=== PATIENT | female | born 1960 | race Caucasian/White ===

== ENCOUNTER → 2019-12-04 12:46 | Outpatient (BNVA) | payer OTHER, SELFPAY | PROVIDERS: PCP Physician Assistant; Referring Provider Physician Assistant; Visit Provider Dietitian, Registered | DX: Z76.89 Persons encountering health services in other specified circumstances (principal) ==

== ENCOUNTER → 2020-03-24 08:25 | Outpatient (BNVA) | payer OTHER, SELFPAY | PROVIDERS: Visit Provider Physician Assistant ==

== ENCOUNTER 2020-04-09 09:21 | Outpatient (REF) | payer OTHER, SELFPAY ==
[2020-04-09 09:55] LABS: MANUAL DIFF FLAG NO
[2020-04-09 10:06] LABS: Basophils Absolute Auto 0.1 X10*3/uL (0.0-0.2); Basophils Percent Auto 1.6 % (0-2); Eosinophils Absolute Auto 0.3 X10*3/uL (0.0-0.4); Eosinophils Percent Auto 7.1 % (0-4); Hematocrit 39.9 % (37-47); Hemoglobin 12.9 g/dl (12.0-16.0); Imm Gran Abs Auto 0.02 X10*3/uL (0.00-0.03); Imm Gran Pct Auto 0.5 % (0.0-0.4); Lymphocytes Absolute Auto 1.2 X10*3/uL (1.2-4.9); Lymphocytes Percent Auto 30.6 % (20-40); Mean Corpuscular HGB Conc 32.3 g/dl (31.0-35.0); Mean Corpuscular Hemoglobin 29.8 pg (27.0-33.0); Mean Corpuscular Volume 92.1 fL (80-98); Mean Platelet Volume 8.5 fL (9.4-12.3); Monocytes Absolute Auto 0.4 X10*3/uL (0.1-1.2); Monocytes Percent Auto 11.3 % (2-11); Neutrophils Absolute Auto 1.9 X10*3/uL (2.0-8.3); Neutrophils Percent Auto 48.9 % (45-73); Platelet Count 323 X10*3/uL (160-400); Red Blood Count 4.33 X10*6/uL (4.20-5.50); Red Cell Distribution Width 12.6 % (11.0-16.0); White Blood Count 3.8 X10*3/uL (4.8-10.8)
[2020-04-09 10:18] LABS: Estimated Average Glucose 94 mg/dL; Hemoglobin A1c % 4.9 %
[2020-04-09 10:50] LABS: Alanine Aminotransferase 25 U/L (0-31); Albumin Level 4.2 g/dL (3.5-5.0); Alkaline Phosphatase 83 U/L (39-117); Anion Gap 12 (12-20); Aspartate Amino Transferase 22 U/L (5-31); Bilirubin Total 0.7 mg/dL (0.0-1.0); Blood Urea Nitrogen 24 mg/dL (9-16); C Reactive Protein 0.07 mg/dL (< or = 0.50); Calcium 9.5 mg/dL (8.4-10.2); Carbon Dioxide 29 mmol/L (22-29); Chloride 107 mmol/L (96-108); Cholesterol 198 mg/dL; Estimated Glomerular Filt Rate > 60; Glucose Random 95 mg/dL (60-115); HDL Cholesterol 59 mg/dL; LDL Cholesterol Calculated 125 mg/dl; Potassium 4.4 mmol/L (3.3-5.1); Sodium 144 mmol/L (135-145); Total Protein 6.5 g/dL (6.5-8.0); Triglycerides 72 mg/dL
[2020-04-09 10:52] LABS: Ferritin 143 ng/mL (10-250); TSH reflex Free T4 0.07 uIU/mL (0.32-4.0); Vitamin D 25-OH Total 26.8 ng/mL (>30)
[2020-04-09 11:51] LABS: Free T4 (Free Thyroxine) 1.18 ng/dL (0.71-1.85)
[2020-04-09 13:02] LABS: Folate 15.5 ng/mL (> or = 4.0); Vitamin B12 1465 pg/mL (200-900)
[2020-04-12 13:06] LABS: Insulin Level Total 9.4 uIU/mL
[2020-04-12 18:41] LABS: Calcium (PTHI) 9.7 mg/dL (8.6-10.4); PTHI 39 pg/mL (14-64)
[2020-04-13 05:22] LABS: Zinc 94 mcg/dL (60-130)
[2020-04-14 10:36] LABS: Vitamin A 41 mcg/dL (38-98)
[2020-04-15 14:27] LABS: Vitamin B1 13 nmol/L (8-30)
== END 2020-04-09 09:22 | disposition home or self-care (01) ==
LOC: HO.LAB 09:21
PROVIDERS: Visit Provider Physician Assistant
DX: E66.9 Obesity, unspecified (principal); Z90.3 Acquired absence of stomach [part of]
CPT/HCPCS: 36415; 80053; 80061; 82306; 82607; 82728; 82746; 83036; 83525; 83970; 84425; 84439; 84443; 84590; 84630; 85025; 86140

== ENCOUNTER → 2020-04-16 08:58 | Outpatient (BNVA) | payer OTHER, SELFPAY | PROVIDERS: Visit Provider Physician Assistant ==

== ENCOUNTER → 2020-07-21 08:13 | Outpatient (BNVA) | payer OTHER, SELFPAY | PROVIDERS: Visit Provider Physician Assistant ==

== ENCOUNTER → 2020-09-01 08:13 | Outpatient (BNVA) | payer OTHER, SELFPAY | PROVIDERS: Visit Provider Dietitian, Registered | DX: E66.9 Obesity, unspecified (principal); Z68.37 Body mass index [BMI] 37.0-37.9, adult | CPT/HCPCS: 97803 ==

== ENCOUNTER → 2020-12-01 13:09 | Outpatient (BNVA) | payer OTHER, SELFPAY | PROVIDERS: Visit Provider Physician Assistant | DX: E66.9 Obesity, unspecified (principal); Z90.3 Acquired absence of stomach [part of] | CPT/HCPCS: 99212 ==

== ENCOUNTER → 2020-12-17 08:07 | Outpatient (BNVA) | payer OTHER, SELFPAY | PROVIDERS: Visit Provider Dietitian, Registered | DX: Z98.84 Bariatric surgery status (principal) | CPT/HCPCS: 97803 ==

== ENCOUNTER → 2021-01-04 08:01 | Outpatient (BNVA) | payer OTHER, SELFPAY | PROVIDERS: Referring Provider Physician Assistant; Visit Provider Dietitian, Registered | DX: E66.9 Obesity, unspecified (principal); Z90.3 Acquired absence of stomach [part of] | CPT/HCPCS: 97803 ==

== ENCOUNTER 2022-10-17 07:47 | Outpatient (AMB) | payer MEDICAID, SELFPAY ==
--- OUTSIDE RECORDS SUMMARY | 2022-10-17 07:48 | XMS_ITS | Continuity of Care Document ---
Author Name Unknown Organization [facility] y Address [address] [place] [address]- Care Team Providers Care Manager Motor Name Role Phone Jared Marquez Primary Care Physician [place] [facility] [id number] Date(s): 12/23/20 - 04/22/21 [facility] [address], [place] [address] Attending Physician: Sanjuana Arias MD Admitting Physician: Sanjuana Arais MD Allergies, Adverse Reactions, Alerts Substance Reaction Severity Status HIVES FULL BODY Active oxyCODONE Nausea Active Medications b complex b complex, By Mouth, Refills 0, Maintenance, 03/10/19 14:15:00 EST, Compound Start Date: 03/10/19 Status: Ordered biotin biotin, By Mouth, Refills 0, Maintenance, 03/10/19 14:15:00 EST, Compound Start Date: 03/10/19 Status: Ordered BuPROpion By Mouth, 0 Refills, Maintenance, 09/26/19 14:22:00 EDT Start Date: 09/26/19 Status: Ordered calcium calcium, Refills 0, Maintenance, 09/26/19 14:23:00 EDT, Supply Start Date: 09/26/19 Status: Ordered CPAP Machine See Instructions, # 1 each, Maintenance, AutoCPAP 6-10, 01/28/21 12:58:00 EST, Compound Start Date: 01/28/21 Status: Ordered estradiol 0.1 mg/g vaginal cream See Instructions, INSERT 1 GM VAGINALLY EVERY SUNDAY AND SUNDAY, # 42.5 Gm, 3 Refills, [facility], 157.48, cm, 01/28/21 9:14:00 EST, Height, 89, kg, 08/17/20 14:00:00 EDT, Dry Weight Start Date: 01/31/21 Status: Ordered Levothyroxine = 150 mcg, By Mouth, Daily, 0 Refills, Maintenance, 10/06/11 14:12:44 EDT Start Date: 10/06/11 Status: Ordered magnesium oxide 400 mg oral tablet See Instructions, JOSE VIZCARRAA TODOS LOS QUICK CON ALIMENTO, # 30 tablet, 5 Refills, [facility] STORE 27913, 157.48, cm, 01/28/21 9:14:00 EST, Height, 89, kg, 08/17/20 14:00:00 EDT, Dry Weight Start Date: 03/07/21 Status: Ordered mirabegron 25 mg oral tablet, extended release 1 tablet = 25 mg, By Mouth, Daily, do not crush or chew, # 30 tablet, 5 Refills, Maintenance, 02/08/21 12:34:00 EST, ER Tablet, [facility]/pharmacy #[id number], Partial fill upon patient request if the prescription is for a schedule II opioid drug., 157.48, cm, 12... Start Date: 02/08/21 Status: Ordered Multivitamin By Mouth, Daily, 0 Refills, Maintenance, 03/10/19 14:16:00 EST Start Date: 03/10/19 Status: Ordered Multivitamin Daily, 0 Refills, Maintenance, 09/26/19 14:23:00 EDT Start Date: 09/26/19 Status: Ordered Myrbetriq 25 mg oral tablet, extended release 1 tablet = 25 mg, By Mouth, Daily, do not crush or chew, # 30 tablet, 5 Refills, Maintenance, 06/30/19 14:04:00 EDT, ER Tablet, [facility]/pharmacy #[id number], 157.48, cm, 04/03/19 12:54:00 EST, Height, 79.7, kg, 03/13/19 9:32:00 EST, Dry Weight Start Date: 06/30/19 Status: Ordered Tylenol Caplet Extra Strength 2 TABS, By Mouth, Every 6 hours, PRN Pain , Moderate, 0 Refills, Maintenance, 11/18/18 15:12:05 EDT Start Date: 11/18/18 Status: Ordered Venlafaxine = 150 mg, By Mouth, Daily before lunch, 0 Refills, Maintenance, 12/14/12 8:55:07 EST Start Date: 01/26/12 Status: Ordered verapamil 120 mg oral tablet 1 tablet = 120 mg, By Mouth, Daily, 0 Refills, Maintenance, 10/06/11 14:11:16 EDT Start Date: 10/06/11 Status: Ordered zyrtec zyrtec, By Mouth, Refills 0, Maintenance, 03/10/19 14:14:00 EST, Compound Start Date: 03/10/19 Status: Ordered Problem List Condition Effective Dates Status Health Status Inform ant Arthritis(Confirmed) Active Asthma(Confirmed) Active Chronic low back pain(Confirmed) Active H/O peripheral neuropathy, p t states had EMG, nondiabetic(Confirmed) Active Hypertension(Confirmed) Active Hypothyroidism(Confirmed) Active Insomnia(Confirmed) Active Morbid Obesity(Confirmed) Active Obese class II(Confirmed) Active Obstructive sleep apnea on CPAP(Confirmed) Active Vital Signs Most recent to oldest [Reference Range]: 1 Height 157.48 cm (04/05/21 4:35 PM) Weight 88.6 kg (04/05/21 4:35 PM) Social History Social History Type Response Smoking Status Never smoker entered on: 11/13/14 Sex
--- OUTSIDE RECORDS SUMMARY | 2022-10-17 07:48 | XMS_ITS | Continuity of Care Document ---
Author Name Unknown Organization [facility] Address [address] [facility], 3r d Floor, [address] [place] [address]- Care Team Providers Care Certifed Refrigeration Operator Name Role Phone Jared Marquez Primary Care Physician [place] [facility] [place]20 [facility] [address], [address], [address] [place] [id number] Attending Physician: AdmPj ordoñez Admitting Physician: Admtr, Pj Referring Physician: Admtr, Ar8 Allergies, Adverse Reactions, Alerts Substance Reaction Severity [...] See Instructions, # 1 each, Maintenance, AutoCPAP 6-14, 12/23/19 10:31:00 EST, Compound Start Date: 12/23/19 Status: Ordered Estrace Vaginal Cream 0.1 mg/g = 1 Gm, Vaginally, Every Sunday and , # 42.5 Gm, 3 Refills, Maintenance, 02/03/20 12:54:00 EST, [id number], 157.48, cm, 09/26/19 14:21:00 EDT, Height, 79.7, kg, 03/13/19 9:32:00 EST, Dry Weight Start Date: 02/03/20 Status: Ordered Estrace Vaginal Cream 0.1 mg/g See Instructions, Vaginally Daily at bedtime, # 42 Gm, 3 Refills, Maintenance, 12/18/18 10:29:28 EST Start Date: 12/18/18 Status: Ordered Levothyroxine = 150 mcg, By Mouth, Daily, 0 Refills, Maintenance, 10/06/11 14:12:44 EDT Start Date: 10/06/11 Status: Ordered magnesium oxide 400 mg oral tablet 1 tablet = 400 mg, By Mouth, Daily, for 30 days, take with food, # 30 tablet, 5 Refills, Acute 03/24/20 15:14:00 EST, 09/26/19 15:14:00 EDT, [facility]/pharmacy #[id number], 157.48, cm, 09/26/19 14:21:00 EDT, Height, 79.7, kg, 03/13/19 9:32:00 EST, Dry Weight Start Date: 09/26/19 Stop Date: 03/24/20 Status: Ordered mirabegron 25 mg oral tablet, extended release 1 tablet = 25 mg, By Mouth, Daily, do not crush or chew, # 30 tablet, 5 Refills, Maintenance, 02/03/20 12:54:00 EST, ER Tablet, [facility]/pharmacy #[id number], Partial fill upon patient request if the prescription is for a schedule II opioid drug., 157.48, cm, 08... Start Date: 02/03/20 Status: Ordered Multivitamin By Mouth, Daily, 0 Refills, Maintenance, 03/10/19 14:16:00 EST Start Date: 03/10/19 Status: Ordered Multivitamin Daily, 0 Refills, Maintenance, 09/26/19 14:23:00 EDT Start Date: 09/26/19 Status: Ordered Myrbetriq 25 mg oral tablet, extended release 1 tablet = 25 mg, By Mouth, Daily, do not crush or chew, # 30 tablet, 5 Refills, Maintenance, 06/30/19 14:04:00 EDT, ER Tablet, [facility]/pharmacy #[id number], 157.48, cm, 04/03/19 12:54:00 EST, Height, 79.7, kg, 03/13/19 9:32:00 EST, Dry Weight Start Date: 06/30/19 Status: Ordered Tylenol Caplet Extra Strength 2 TABS, By Mouth, Every 6 hours, PRN Pain , Moderate, 0 Refills, Maintenance, 11/18/18 15:12:05 EDT Start Date: 11/18/18 Status: Ordered Venlafaxine = 150 mg, By Mouth, Daily before lunch, 0 Refills, Maintenance, 01/26/12 8:55:07 EST Start Date: 01/26/12 Status: Ordered [...] EMG, nondiabetic(Confirmed) Active Hypertension(Confirmed) Active Hypothyroidism(Confirmed) Active Morbid Obesity(Confirmed) Active Obstructive sleep apnea on CPAP(Confirmed) Active Social History Social History Type Response Smoking Status Never smoker entered on: 11/13/14 Sex
--- OUTSIDE RECORDS SUMMARY | 2022-10-17 07:48 | XMS_ITS | Continuity of Care Document ---
Author Name Unknown Organization [facility] Address [address] [place] [address]- Care Team Providers Care Director Mobile Media [employer] Name Role Phone Jared Marquez Primary Care Physician [phone] Encounter [facility] [place] Date(s): 05/11/22 - 06/10/22 [facility] [address] [address] Attending Physician: Admtr, Ar8 Admitting Physician: Admtr, Ar8 Referring Physician: Admtr, Ar8 Allergies, Adverse Reactions, [...] Instructions, # 1 each, Maintenance, AutoCPAP 6-10, 05/11/22 14:07:00 EDT, Compound Start Date: 05/11/22 Status: Ordered estradiol 0.1 mg/g vaginal cream See Instructions, INSERT 1 GM VAGINALLY EVERY SUNDAY AND SUNDAY, # 42.5 Gm, 3 Refills, [facility], 157.48, cm, 01/28/21 9:14:00 EST, Height, 89, kg, 08/17/20 14:00:00 EDT, Dry Weight Start Date: 01/31/21 Status: Ordered Levothyroxine = 150 mcg, By Mouth, Daily, 0 Refills, Maintenance, 10/06/11 14:12:44 EDT Start Date: 10/06/11 Status: Ordered magnesium oxide 400 mg oral tablet See Instructions, CHEOE EVERTON TABLETA TODOS LOS QUICK CON ALIMENTO, # 30 tablet, 5 Refills, [facility] STORE 32272, 157.48, cm, 01/28/21 9:14:00 EST, Height, 89, kg, 08/17/20 14:00:00 EDT, Dry Weight Start Date: 03/07/21 Status: Ordered mirabegron 25 mg oral tablet, extended release 1 tablet = 25 mg, By Mouth, Daily, do not crush or chew, # 30 tablet, 5 Refills, Maintenance, 01/31/22 12:11:00 EST, ER Tablet, [facility]/pharmacy #[id number], Partial fill upon patient request if the prescription is for a schedule II opioid drug., 157.48, cm, 02... Start Date: 01/31/22 Status: Ordered Multivitamin By Mouth, Daily, 0 Refills, Maintenance, 03/10/19 14:16:00 EST Start Date: 03/10/19 Status: Ordered Multivitamin Daily, 0 Refills, Maintenance, 09/26/19 14:23:00 EDT Start Date: 09/26/19 Status: Ordered Myrbetriq 25 mg oral tablet, extended release 1 tablet = 25 mg, By Mouth, Daily, do not crush or chew, # 30 tablet, 5 Refills, Maintenance, 06/30/19 14:04:00 EDT, ER Tablet, [facility]/pharmacy #[id number], 157.48, cm, 04/03/19 12:54:00 EST, Height, [...] Date: 03/10/19 Status: Ordered Problem List Condition Confirmation Course Effective Dates Status H ealth Status Informant Arthritis Confirmed Active Asthma Confirmed Active Chronic low back pain Confirmed Active H/O peripheral neuropathy, pt states had EMG, nondiabetic Confirmed Active Hypertension Confirmed Active Hypothyroidism Confirmed Active Insomnia Confirmed Active Morbid Obesity Confirmed Active Obese class II Confirmed Active Obstructive sleep apnea on CPAP Confirmed Active Social History Social History Type Response Smoking Status Never smoker entered on: 11/13/14 Sex Patient Care team information Care Team Personnel Name: Jared Marquez Position: S Outreach Member Role: PCP Address: Address: [address] [place] [address]- Care Team Related Persons Name: GUALBERTO CAMACHO Address: home [address] [place] [address] Name: ERIC KAUFFMAN
--- OUTSIDE RECORDS SUMMARY | 2022-10-17 07:48 | XMS_ITS | Continuity of Care Document ---
Author Name Unknown Organization [facility] Address [address] [place] [address]- Care Team Providers Care Engraver Pantograph Name Role Phone Jared Marquez Primary Care Physician En[place] [facility] [place] Date(s): 07/21/21 - 08/20/21 [facility] [address] [place] [id number] Attending Physician: Admtr, Ar8 Admitting Physician: Admtr, [...] Instructions, # 1 each, Maintenance, AutoCPAP 6-10, 07/21/21 11:07:00 EDT, Compound Start Date: 07/21/21 Status: Ordered estradiol 0.1 mg/g vaginal cream See Instructions, INSERT 1 GM VAGINALLY EVERY SUNDAY AND SUNDAY, # 42.5 Gm, 3 Refills, [facility], 157.48, cm, 01/28/21 9:14:00 EST, Height, 89, kg, 08/17/20 14:00:00 EDT, Dry Weight Start Date: 01/31/21 Status: Ordered Levothyroxine = 150 mcg, By Mouth, Daily, 0 Refills, Maintenance, 10/06/11 14:12:44 EDT Start Date: 10/06/11 Status: Ordered magnesium oxide 400 mg oral tablet See Instructions, CHEOE EVERTON TABLETA TODOS LOS QUICK CON ALIMENTO, # 30 tablet, 5 Refills, [facility] ST[facility] 32936, 157.48, cm, 01/28/21 9:14:00 EST, Height, 89, kg, 08/17/20 14:00:00 EDT, Dry Weight Start Date: 03/07/21 Status: Ordered mirabegron 25 mg oral tablet, extended release 1 tablet = 25 mg, By Mouth, Daily, do not crush or chew, # 30 tablet, 5 Refills, Maintenance, 08/09/21 12:07:00 EDT, ER Tablet, [facility]/pharmacy #[id number], Partial fill upon patient request if the prescription is for a schedule II opioid drug., 157.48, cm, 02... Start Date: 08/09/21 Status: Ordered Multivitamin By Mouth, Daily, 0 Refills, Maintenance, 03/10/19 14:16:00 EST Start Date: 03/10/19 Status: Ordered Multivitamin Daily, 0 Refills, Maintenance, 09/26/19 14:23:00 EDT Start Date: 09/26/19 Status: Ordered Myrbetriq 25 mg oral tablet, extended release 1 tablet = 25 mg, By Mouth, Daily, do not crush or chew, # 30 tablet, 5 Refills, Maintenance, 06/30/19 14:04:00 EDT, ER Tablet, [facility]/pharmacy #[id number], 157.48, cm, 04/03/19 12:54:00 [...]
--- OUTSIDE RECORDS SUMMARY | 2022-10-17 07:48 | XMS_ITS | Continuity of Care Document ---
Author Name Unknown Organization [facility] [employer] Address [address] [facility], 4t [place] [address]- Care Team Providers Care Dock Or Pier Laborer Name Role Phone Jared Marquez Primary Care Physician [place] [facility] [place] - 09/13/19 [facility] [address] [facility], 4th [place] [address]- [facility] Allergies, Adverse Reactions, Alerts Substance Reaction Severity Status HIVES FULL BODY Active oxyCODONE Nausea Active Medications b complex b complex, By Mouth, Refills 0, Maintenance, 03/10/19 14:15:00 EST, Compound Start Date: 03/10/19 Status: Ordered biotin biotin, By Mouth, Refills 0, Maintenance, 03/10/19 14:15:00 EST, Compound Start Date: 03/10/19 Status: Ordered CPAP Machine See Instructions, # 1 each, Maintenance, AutoCPAP 6-14, 04/04/19 15:02:00 EST, Compound Start Date: 04/04/19 Status: Ordered Estrace Vaginal Cream 0.1 mg/g See Instructions, Vaginally Daily at bedtime, # 42 Gm, 3 Refills, Maintenance, 12/18/18 10:29:28 EST Start Date: 12/18/18 Status: Ordered Levothyroxine = 150 mcg, By Mouth, Daily, 0 Refills, Maintenance, 10/06/11 14:12:44 EDT Start Date: 10/06/11 Status: Ordered Multivitamin By Mouth, Daily, 0 Refills, Maintenance, 03/10/19 14:16:00 EST Start Date: 03/10/19 Status: Ordered Myrbetriq 25 mg oral tablet, extended release 1 tablet = 25 mg, By Mouth, Daily, do not crush or chew, # 30 tablet, 5 Refills, Maintenance, 06/30/19 14:04:00 EDT, ER Tablet, [id number], 157.48, cm, 04/03/19 12:54:00 EST, Height, [...]
--- OUTSIDE RECORDS SUMMARY | 2022-10-17 07:48 | XMS_ITS | Continuity of Care Document ---
Author Name Unknown Organization [facility] Address [address] [place] [address]- Care Team Providers Care Fighting Vehicle Systems Maintainer Name Role Phone Jared Marquez Primary Care Physician [place] [facility] [place] 08/01/19 - 08/31/19 [facility] [address] [place] [address] [facility] Attending Physician: Pj Garcia Admitting Physician: AdmPj ordoñez Referring Physician: Admtr, ArSharla Allergies, Adverse Reactions, Alerts Substance Reaction Severity [...] Refills, Maintenance, 06/30/19 14:04:00 EDT, ER Tablet, [facility]/pharmacy #[id number], 157.48, cm, 04/03/19 12:54:00 EST, [...]
--- OUTSIDE RECORDS SUMMARY | 2022-10-17 07:48 | XMS_ITS | Continuity of Care Document ---
Author Name Unknown Organization [facility] y Address [address] [place] [address]- Care Team Providers Care Scientific Linguist Name Role Phone Jared Marquez Primary Care Physician En[place] [facility] [place] Date(s): 10/27/20 - 01/14/21 [facility] [address], [place] [address] Attending Physician: Sanjuana Arias MD Admitting Physician: Sanjuana Arias MD Referring Physician: Jared Marquez Allergies, Adverse Reactions, Alerts Substance Reaction Severity [...] Instructions, # 1 each, Maintenance, AutoCPAP 6-10, 10/26/20 10:32:00 EDT, Compound Start Date: 10/26/20 Status: Ordered Estrace Vaginal Cream 0.1 mg/g = 1 Gm, Vaginally, Every Sunday and , # 42.5 Gm, 3 Refills, Maintenance, 08/17/20 14:21:00 EDT, [id number], 157.48, cm, 08/17/20 14:00:00 EDT, Height, 89, kg, 08/17/20 14:00:00 EDT, Dry Weight Start Date: 08/17/20 Status: Ordered Estrace Vaginal Cream 0.1 mg/g = 1 Gm, Vaginally, Every Sunday and , # 42.5 Gm, 3 Refills, Maintenance, 02/03/20 12:54:00 EST, [id number], 157.48, cm, 09/26/19 14:21:00 EDT, Height, 79.7, kg, 03/13/19 9:32:00 EST, Dry Weight Start Date: 02/03/20 Status: Ordered Levothyroxine = 150 mcg, By Mouth, Daily, 0 Refills, Maintenance, 10/06/11 14:12:44 EDT Start Date: 10/06/11 Status: Ordered mirabegron 25 mg oral tablet, extended release 1 tablet = 25 mg, By Mouth, Daily, do not crush or chew, # 30 tablet, 5 Refills, Maintenance, 08/17/20 14:21:00 EDT, ER Tablet, [id number], Partial fill upon patient request if the prescription is for a schedule II opioid drug., 157.48, cm, 07... Start Date: 08/17/20 Status: Ordered Multivitamin By Mouth, Daily, 0 [...] Hypothyroidism(Confirmed) Active Insomnia(Confirmed) Active Morbid Obesity(Confirmed) Active Obstructive sleep apnea on CPAP(Confirmed) Active Social History Social History Type Response Smoking Status Never smoker entered on: 11/13/14 Sex
--- OUTSIDE RECORDS SUMMARY | 2022-10-17 07:48 | XMS_ITS | Continuity of Care Document ---
Author Name Unknown Organization [facility] [employer] [facility] Address [address] [facility], 4t [place] [address]- Care Team Providers Care Cash Applications Clerk Name Role Phone Jared Marquez Primary Care Physician [facility] [id number] Date(s): 11/02/21 - 03/02/22 [facility] [facility] [address] [facility], [address] [place], [place] [address] Attending Physician: Maryan Richey MD Admitting Physician: Maryan Richey MD Referring Physician: Jared Marquez Allergies, Adverse [...] # 42.5 Gm, 3 Refills, [facility], 157.48, cm, 01/28/21 9:14:00 EST, Height, 89, kg, 08/17/20 14:00:00 EDT, Dry Weight Start Date: 01/31/21 Status: Ordered Levothyroxine = 150 mcg, By Mouth, Daily, 0 Refills, Maintenance, 10/06/11 14:12:44 EDT Start Date: 10/06/11 Status: Ordered magnesium oxide 400 mg oral tablet See Instructions, CHEOE EVERTON TABLETA TODOS LOS QUICK CON ALIMENTO, # 30 tablet, 5 Refills, [facility], 157.48, cm, 01/28/21 9:14:00 EST, Height, 89, kg, 08/17/20 14:00:00 EDT, Dry Weight Start Date: 03/07/21 Status: Ordered mirabegron 25 mg oral tablet, extended release 1 tablet = 25 mg, By Mouth, Daily, do not crush or chew, # 30 tablet, 5 Refills, Maintenance, 01/31/22 12:11:00 EST, ER Tablet, [facility]/pharmacy #[id number], Partial fill upon patient request if [...] Refills, Maintenance, 06/30/19 14:04:00 EDT, ER Tablet, [facility]/pharmacy #[id number], 157.48, cm, 04/03/19 12:54:00 EST, Height, [...] S Outreach Member Role: PCP Address: Address: [address] [place] [address]- Care Team Related Persons Name: GUALBERTO CAMACHO Address: home [address] [place] [address] Name: ERIC KAUFFMAN
--- OUTSIDE RECORDS SUMMARY | 2022-10-17 07:48 | XMS_ITS | Continuity of Care Document ---
Author Name Unknown Organization [facility] [employer] [facility] Address [address] [facility], 4t [place] [address]- Care Team Providers Care Cork Insulation Setter Name Role Phone Jared Marquez Primary Care Physician [place] [facility] [place]24[place] - 09/11/19 [facility] [address] [facility], 4th [place] [address]- [facility] Attending Physician: Maryan Richey MD Admitting Physician: [...]
--- OUTSIDE RECORDS SUMMARY | 2022-10-17 07:48 | XMS_ITS | Continuity of Care Document ---
Author Name Unknown Organization [facility] Address [address] [facility], 3r d Floor, [address] [place] [address]- Care Team Providers Care Architectural Superintendent Name Role Phone Jared Marquez Primary Care Physician En[facility] [place] Date(s): 01/28/19 - 02/04/19 [facility] [address] [place], [address] Floor, [address] [place] [address]- [facility] Attending Physician: Hallie Nur MD Allergies, Adverse Reactions, Alerts Substance Reaction Severity Status HIVES FULL BODY Active Medications Cetirizine By Mouth, Daily, 0 Refills, Maintenance, 01/16/19 10:43:30 EST Start Date: 01/16/19 Status: Ordered Estrace Vaginal Cream 0.1 mg/g See Instructions, Vaginally Daily at bedtime, # 42 Gm, 3 Refills, Maintenance, 12/18/18 10:29:28 EST Start Date: 12/18/18 Status: Ordered Levothyroxine = 150 mcg, By Mouth, Daily, 0 Refills, Maintenance, 10/06/11 14:12:44 EDT Start Date: 10/06/11 Status: Ordered Loratadine 10 mg, By Mouth, Daily, Refills 0, Maintenance, 12/12/17 13:16:33 EDT Start Date: 12/12/17 Status: Ordered Oxybutynin = 10 mg, By Mouth, Daily, 0 Refills, Maintenance, 03/05/18 9:12:03 EST Start Date: 03/05/18 Status: Ordered Tylenol Caplet Extra Strength 2 [...] 14:11:16 EDT Start Date: 10/06/11 Status: Ordered Problem List Condition Effective Dates [...]
--- OUTSIDE RECORDS SUMMARY | 2022-10-17 07:48 | XMS_ITS | Continuity of Care Document ---
Author Name Unknown Organization [facility] Address [address] [place] [address]- Care Team Providers Care Sponge Clipper Name Role Phone Jared Marquez Primary Care Physician Encounter [facility] [place] Date(s): 02/25/19 - 04/06/[address] [address] [facility] Attending Physician: Miranda Bass MD, V Admitting Physician: Miranda Bass MD, V Referring Physician: Miranda Bass MD, V Allergies, Adverse Reactions, Alerts Substance Reaction Severity [...] 14:16:00 EST Start Date: 03/10/19 Status: Ordered Tylenol Caplet Extra Strength 2 [...]
--- OUTSIDE RECORDS SUMMARY | 2022-10-17 07:48 | XMS_ITS | Continuity of Care Document ---
Author Name Unknown Organization [facility] Address [address] [facility], 3r d Floor, [address] [place] [address]- Care Team Providers Care Tensioning Machine Operator Name Role Phone Jared Marquez Primary Care Physician [place] [facility] [place]): [place] - 02/08/20 [facility] [address], 3[address] Floor, [address] [place] [address] Attending Physician: Isa Mota MD Admitting Physician: Isa Mota MD Allergies, Adverse Reactions, Alerts Substance Reaction [...] Acute 03/24/20 15:14:00 EST, 09/26/19 15:14:00 EDT, [facility]/pharmacy #[id number], 157.48, cm, 09/26/19 14:21:00 EDT, Height, 79.7, kg, 03/13/19 9:32:00 EST, Dry Weight Start Date: 09/26/19 Stop Date: 03/24/20 Status: Ordered mirabegron 25 mg oral tablet, extended release 1 tablet = 25 mg, By Mouth, Daily, do not crush or chew, # 30 tablet, 5 Refills, Maintenance, 02/03/20 12:54:00 EST, ER Tablet, [facility]/pharmacy #[id number], Partial fill upon patient request [...] Refills, Maintenance, 06/30/19 14:04:00 EDT, ER Tablet, [facility]/pharmacy #[id number], 157.48, cm, 04/03/19 12:54:00 EST, [...]
--- OUTSIDE RECORDS SUMMARY | 2022-10-17 07:48 | XMS_ITS | Continuity of Care Document ---
Author Name Unknown Organization [facility] Address [address] [place] [address]- Care Team Providers Care Laborer Laboratory Name Role Phone Jared Marquez Primary Care Physician Encounter [facility] [place] Date(s): 12/22/19 - 01/21/20 [facility] [address] [place] [id number] Attending Physician: Pj Garcia Admitting Physician: AdmtrPj Referring Physician: Admtr, Ar8 Allergies, Adverse Reactions, [...] Acute 03/24/20 15:14:00 EST, 09/26/19 15:14:00 EDT, [facility]/pharmacy #[id number], 157.48, cm, 09/26/19 14:21:00 EDT, Height, 79.7, kg, 03/13/19 9:32:00 EST, Dry Weight Start Date: 09/26/19 Stop Date: 03/24/20 Status: Ordered Multivitamin By Mouth, Daily, 0 Refills, Maintenance, 03/10/19 14:16:00 EST Start Date: 03/10/19 Status: Ordered Multivitamin Daily, 0 Refills, Maintenance, 09/26/19 14:23:00 EDT Start Date: 09/26/19 Status: Ordered Myrbetriq 25 mg oral tablet, extended release 1 tablet = 25 mg, By Mouth, Daily, do not crush or chew, # 30 tablet, 5 Refills, Maintenance, 06/30/19 14:04:00 EDT, ER Tablet, [facility]/pharmacy #[id number], 157.48, cm, 04/03/19 12:54:00 EST, Height, [...]
--- OUTSIDE RECORDS SUMMARY | 2022-10-17 07:48 | XMS_ITS | Continuity of Care Document ---
Author Name Unknown Organization [facility] Address [address] [place] [address]- Care Team Providers Care Disc Pad Knockout Worker Name Role Phone Jared Marquez Primary Care Physician [phone] [place] [facility] [place] 12/17/[place] - 01/21/20 [facility] [address] [place] [id number] Attending Physician: Abdi BURGOS, Masha Lopez Admitting Physician: Abdi BURGOS, Masha Lopez Referring Physician: Jared Marquez Allergies, Adverse Reactions, [...] Acute 03/24/20 15:14:00 EST, 09/26/19 15:14:00 EDT, [facility]/pharmacy #[id number], 157.48, cm, 09/26/19 14:21:00 EDT, Height, [...] Maintenance, 06/30/19 14:04:00 EDT, ER Tablet, [facility]/pharmacy #[id number], 157.48, cm, 04/03/19 12:54:00 EST, [...]
--- OUTSIDE RECORDS SUMMARY | 2022-10-17 07:48 | XMS_ITS | Continuity of Care Document ---
Author Name Unknown Organization [facility] Address [address] [facility], [address] Floor, [address] [place] [address]- Care Team Providers Care Slash Trimmer Name Role Phone Jared Marquez Primary Care Physician [phone] Encounter [facility] [place] Date(s): 06/26/19 - 07/03/19 [facility] [address], [address], [address] [place] [address]- [facility] Attending Physician: Not on Staff, Attending MD Allergies, Adverse Reactions, Alerts Substance Reaction [...]
--- OUTSIDE RECORDS SUMMARY | 2022-10-17 07:48 | XMS_ITS | Continuity of Care Document ---
Author Name Unknown Organization [facility] Address [address] [place] [address], [address] [place] [address]- Care Team Providers Care Form Grader Name Role Phone Jared Marquez Primary Care Physician [phone] Encounter [facility] [place] Date(s): 01/31/22 - 03/02/22 [facility] [address] [facility], [address] [place], [place] [address] Attending Physician: Pj Garcia Admitting Physician: AdmPj ordoñez Referring Physician: AdmtrPj Allergies, Adverse Reactions, Alerts Substance Reaction Severity [...] # 42.5 Gm, 3 Refills, [facility], 157.48, cm, 01/28/21 9:14:00 EST, Height, 89, kg, 08/17/20 14:00:00 EDT, Dry Weight Start Date: 01/31/21 Status: Ordered Levothyroxine = 150 mcg, By Mouth, Daily, 0 Refills, Maintenance, 10/06/11 14:12:44 EDT Start Date: 10/06/11 Status: Ordered magnesium oxide 400 mg oral tablet See Instructions, TOME [facility] TABLETA TODOS LOS QUICK CON ALIMENTO, # 30 tablet, 5 Refills, [facility], 157.48, cm, 01/28/21 9:14:00 EST, Height, 89, kg, 08/17/20 14:00:00 EDT, Dry Weight Start Date: 03/07/21 Status: Ordered mirabegron 25 mg oral tablet, extended release 1 tablet = 25 mg, By Mouth, Daily, do not crush or chew, # 30 tablet, 5 Refills, Maintenance, 01/31/22 12:11:00 EST, ER Tablet, [facility]/pharmacy #[id number], Partial fill upon patient request if [...] Refills, Maintenance, 06/30/19 14:04:00 EDT, ER Tablet, [facility]/pharmacy #[id number], 157.48, cm, 04/03/19 12:54:00 [...] Care Team Personnel Name: Jared Marquez Position: [facility] Outreach Member Role: PCP Address: Address: [address] [place] [address]- Care Team Related Persons Name: GUALBERTO CAMACHO Address: home [address] [place] [address] Name: ERIC KAUFFMAN
--- OUTSIDE RECORDS SUMMARY | 2022-10-17 07:48 | XMS_ITS | Continuity of Care Document ---
Author Name Unknown Organization [facility] Address [address] [place] [address]- Care Team Providers Care Bomb Squad Officer Name Role Phone Jared Marquez Primary Care Physician [place] [facility] [id number] Date(s): 03/24/21 - 07/22/21 [facility] [address] [place] [id number] Attending Physician: Sanjuana Arias MD Admitting Physician: Sanjuana Arias MD Allergies, Adverse Reactions, Alerts Substance Reaction [...] # 42.5 Gm, 3 Refills, [facility], 157.48, cm, 01/28/21 9:14:00 EST, Height, 89, kg, 08/17/20 14:00:00 EDT, Dry Weight Start Date: 01/31/21 Status: Ordered Levothyroxine = 150 mcg, By Mouth, Daily, 0 Refills, Maintenance, 10/06/11 14:12:44 EDT Start Date: 10/06/11 Status: Ordered magnesium oxide 400 mg oral tablet See Instructions, JOSE [place] TABLETA TODOS LOS QUICK CON ALIMENTO, # 30 tablet, 5 Refills, [facility]1953, 157.48, cm, 01/28/21 9:14:00 EST, Height, 89, [...]
--- OUTSIDE RECORDS SUMMARY | 2022-10-17 07:48 | XMS_ITS | Continuity of Care Document ---
Author Name Unknown Organization [facility] Address [address] [place] [address]- Care Team Providers Care Chemical Laboratory Technician Name Role Phone Jared Marquez Primary Care Physician [phone] Encounter [facility] [place] Date(s): 12/15/19 - 12/22/19 [facility] [address] [place] [id number] Attending Physician: Abdi BURGOS, Masha Lopez Admitting [...] 03/24/20 15:14:00 EST, 09/26/19 15:14:00 EDT, [facility]/pharmacy #[id number], 157.48, cm, 09/26/19 14:21:00 EDT, [...] 06/30/19 14:04:00 EDT, ER Tablet, [facility]/pharmacy #[id number], 157.48, cm, 04/03/19 12:54:00 EST, [...]
--- OUTSIDE RECORDS SUMMARY | 2022-10-17 07:48 | XMS_ITS | Continuity of Care Document ---
Author Name Unknown Organization [facility] Address [address] [facility], 4[address] [place] [address]- Care Team Providers Care Yard Hostler Name Role Phone Jared Marquez Primary Care Physician [phone] Encounter [facility] [place] Date(s): 06/30/19 - 09/11/19 [facility] [address] [facility], [address]th [place] [address]- [facility] Attending Physician: Maryan Richey MD Admitting Physician: [...] Refills, Maintenance, 06/30/19 14:04:00 EDT, ER Tablet, [facility]/pharmacy #[id number], 157.48, cm, 04/03/19 [...]
--- OUTSIDE RECORDS SUMMARY | 2022-10-17 07:48 | XMS_ITS | Continuity of Care Document ---
Author Name Unknown Organization [facility] Address [address] [facility], [address] Floor, [address] [place] [address]- Care Team Providers Care Tank Car Mechanic Name Role Phone Jared Marquez Primary Care Physician [phone] [place] [facility] [place]): [place] - 02/07/19 [facility] [address], [address], [address] [place] [address] [facility] Attending Physician: Pj Garcia Admitting Physician: AdmtrPj [...]
--- NOTE | 2022-10-17 08:01 | A.OFFVIS_ITS ---
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 Patient states I use a Cpap because I use to fall asleep everywhere and always felt very tired. I'm still waking up with headache and with memory issue but I feel that have improved greatly. Allergies atropine [From ] Allergy (Unknown, Unverified 12/01/20 13:19) RASH hyoscyamine [From ] Allergy (Unknown, Unverified 12/01/20 13:19) RASH phenobarbital [From ] Allergy (Unknown, Unverified 12/01/20 13:19) RASH scopolamine [From ] Allergy (Unknown, Unverified 12/01/20 13:19) RASH Allergy (Unknown, Uncoded 12/01/20 13:19) rash PFSH Medical History (Updated 03/24/20 @ 15:34 by Yany Arce PA-C) Aftercare following right shoulder joint replacement surgery Surgical History (Updated 10/17/22 @ 08:08 by LIEN Sanchez) H/O section History of sleeve gastrectomy Hx of bladder repair surgery Hx of cholecystectomy Hx of LASIK Hx of tonsillectomy Family History Mother No problems noted. Father No problems noted. Brother No problems noted. Brother No problems noted. Daughter No problems noted. Son No problems noted. Social History Alcohol intake: current Alcohol intake frequency: holidays/special occasions only Patient Tobacco Use Status: Never used Tobacco Coding Diagnoses
[2022-10-17 08:03] VITALS: BP 132/78; PULSE 73; O2SAT 97; BMI 35.9
--- NOTE | 2022-10-17 08:11 | MHC.OFFVIS ---
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 Patient sttaes Im using a CPAP now but I'm still getting headaches and some memory loss. Profile Saw Operator Required: Yes Profile Saw Operator Name: Noy Chavez Information Interpreted: non-clinical & clinical Allergies atropine [From ] Allergy (Unknown, Unverified 12/01/20 13:19) RASH hyoscyamine [From ] Allergy (Unknown, Unverified 12/01/20 13:19) RASH phenobarbital [From ] Allergy (Unknown, Unverified 12/01/20 13:19) RASH scopolamine [From ] Allergy (Unknown, Unverified 12/01/20 13:19) RASH Allergy (Unknown, Uncoded 12/01/20 13:19) rash Medication List - Last Reconciled 10/17/22 by Jaswant Vallejo, AMAN bupropion HCl 300 mg PO BEDTIME calcium citrate-vitamin D3 315 mg-5 mcg (200 unit) (Calcium Citrate + D) 1 tab PO BID cetirizine (All Day Allergy (cetirizine)) 10 mg PO DAILY PRN cholecalciferol (vitamin D3) 25 mcg PO DAILY docusate sodium (Colace) 100 mg PO BID duloxetine 20 mg PO BID levothyroxine 175 mcg PO DAILY lisinopril 5 mg PO DAILY mirabegron ER (Myrbetriq) 25 mg PO DAILY [id number]-FA-vit K 45 mg iron- 800 mcg-120 mcg (Bariatric Multivitamins) caps PO zolpidem 5 mg PO BEDTIME HPI HPI Comments History of Present Illness Details 62 y/o female patient with FAYE on CPAP presents for new in-person visit to manage sleep apnea. Pt reports she was diagnosed with FAYE in 2008 and started using CPAP. She has new CPAP in 2013, but no repeat sleep study done. Pt had gastric bypass 2020 and llost more than 100 lb, she was more than 300 lb in 2008. Pt uses CPAP almost every night except when she has a cold. However, her CPAP tube has water leaking and needs to take off the mask at night. Her home care company is [employer]. She sleeps better when she uses CPAP. She reports pressure headache and memory loss. Using CPAP relieved her headache, but her headache came back and experiences forgetful and memory loss. Sleep questionnaire: Have you ever been diagnosed with a sleep disorder? Yes, FAYE. Have you ever had a sleep study in the past? Yes in 2008 Have you ever been treated for a sleep disorder? Yes, with CPAP. Do you take medications for a sleep disorder? Anbiem 5 mg qHS but wakes up 4 am which is earlier than she wanted. Do you snore? No. Do you wake up gasping at night? No. Do you have episodes of apneas? Yes. If yes, are they witnessed? Yes. Do you have episodes of nocturnal chest pain or dyspnea? No. Do you have difficulty initiating sleep? Yes. Do you have difficulty maintaining sleep? Yes. Do you wake up tired? Yes. Do you have headaches upon awakening? Yes, sporadically. Do you wake up with dry mouth or throat? No. Do you have GERD? Yes. Do you have nocturia? Not really. Do you have nocturnal leg cramps? Yes, when she is ehydrated. Do you have symptoms of restless legs? Yes. Do you act out your dreams? No. Sleep hygiene questionnaire: What is your usual sleep routine? Usual bedtime is at 10-10:30 pm; Usual wake up time is at 4 am. Do you take naps? No. Is your sleep environment cool, dark, and quiet? Yes. Do you exercise? No. Do you take caffeine or other stimulants? Yes, in the morning and afternoon. Do you use electronics in bed? Yes. What is your work schedule? N/A. Hypersomnolence questionnaire: Do you have daytime tiredness or fatigue? Yes. Do you easily fall asleep when inactive? Yes. Have you ever had episodes of sudden weakness? No. Have you ever had episodes of sudden weakness associated with strong emotions? No. [facility] Medical History (Updated 10/17/22 @ 08:57 by Jaswant Vallejo CNP) Aftercare following right shoulder joint replacement surgery Surgical History (Updated 10/17/22 @ 08:08 by LIEN Sanchez) H/O section History of sleeve gastrectomy Hx of bladder repair surgery Hx of cholecystectomy Hx of LASIK Hx of tonsillectomy Family History Mother No problems noted. Father No problems noted. Brother No problems noted. Brother No problems noted. Daughter No problems noted. Son No problems noted. Social History Alcohol intake: current Alcohol intake frequency: holidays/special occasions only Patient Tobacco Use Status: Never used Tobacco Review of Systems Const All systems reviewed & are unremarkable except as noted in HPI and below ENT Reports Normal hearing present Neuro Reports Normal hearing present Physical Exam Vital Signs: Last Vital Signs Pulse 73 10/17/22 08:03 BP 132/78 10/17/22 08:03 Pulse Ox 97 10/17/22 08:03 Oxygen Delivery Method Room Air 10/17/22 08:03 BMI result Body Mass Index 35.9 Const General: cooperative Nutritional Appearance: obese Orientation/consciousness: patient oriented x3 Limitations: language barrier (Pashto speaking only) Neck Neck: Yes full ROM and Yes supple Neuro General: patient oriented x3 and gait normal Cranial nerves: Yes Bilaterally intact EOM present, Yes Normal facial strength present, Yes Midline tongue present, Yes Symmetric palate elevation present, Yes Normal hearing present, Yes Ability to bilaterally rotate head present and Yes Ability to bilaterally elevate shoulders present Cognition (Neuro): normal cognition Gait exam (Neuro): Normal gait present Motor exam (neuro): 5/5 motor strength present throughout, Pronator motor function not present and no tremor noted Psych Appearance: grossly normal Mental Status: mental status grossly normal Speech and movement: Normal speech and movement present Affect: normal affect Attitude: cooperative Assessment & Plan Assessment & Plan (1) Daytime sleepiness: Code(s): R40.0 - Somnolence (2) FAYE on CPAP: Code(s): G47.33 - Obstructive sleep apnea (adult) (pediatric) (3) Headache: Code(s): R51.9 - Headache, unspecified Plan Pt is advised to undergo home sleep study to assess for sleep apnea. Will f/u with pt after study to discuss results and appropriate treatment options. Advised patient to call [facility] for CPAP evaluation. Advised patient to reduce ambien use, and start melatonin 3mg and magnesium 400 mg qHS. Sleep hygiene education provided. Limit caffeine intake in the afternoon and electronic use before bedtime. Pt to call with any worsening concerns or questions. Orders: Orders RT home sleep study Today E66.9 - Obesity, unspecified, G47.33 - Obstructive sleep apnea (adult) (pediatric), R40.0 - Somnolence Medications: New magnesium oxide 400 mg PO DAILY 30 days 30 tabs 3RF melatonin 3 mg PO BEDTIME 30 days PRN 30 tabs 3RF sleep Coding Level of Care Code New Pt Level 4 (68082) Diagnoses Daytime sleepiness R40.0 FAYE on CPAP G47.33 Headache R51.9
[2022-10-17 08:13] VITALS: BMI 35.9
== END 2022-10-17 08:41 | disposition home or self-care (01) ==
LOC: HO.HSMC 07:47
PROVIDERS: PCP Physician Assistant; Visit Provider Nurse Practitioner Family
DX: R40.0 Somnolence (principal); G47.33 Obstructive sleep apnea (adult) (pediatric); R51.9 Headache, unspecified
CPT/HCPCS: 99204

== ENCOUNTER → 2022-10-17 07:47 | Outpatient (BNVA) | payer MEDICAID, SELFPAY | PROVIDERS: PCP Physician Assistant; Visit Provider Nurse Practitioner Family | DX: R40.0 Somnolence (principal); G47.33 Obstructive sleep apnea (adult) (pediatric); R51.9 Headache, unspecified | CPT/HCPCS: 99212 ==

== ENCOUNTER → 2023-01-18 12:58 | Outpatient (REF) | payer MEDICAID, SELFPAY | LOC: HO.SL 12:58 | PROVIDERS: PCP Physician Assistant; Visit Provider Nurse Practitioner Family | DX: G47.33 Obstructive sleep apnea (adult) (pediatric) (principal); R40.0 Somnolence; E66.9 Obesity, unspecified | CPT/HCPCS: 95806 ==

== ENCOUNTER → 2023-01-18 13:19 | Outpatient (BNV) | payer MEDICAID, SELFPAY | PROVIDERS: PCP Physician Assistant; Visit Provider Psychiatry & Neurology Neurology | DX: R06.83 Snoring (principal) | CPT/HCPCS: 95806 ==

== ENCOUNTER 2023-02-20 13:41 | Outpatient (AMB) | payer MEDICAID, SELFPAY ==
--- NOTE | 2023-02-20 13:47 | A.OFFVIS_ITS ---
Intake Vital Signs 02/20/23 13:50 Height 5 ft 2 in Weight 208 lb BMI 38.0 BP 130/68 Blood Pressure Location Lt brachial Position Sitting Pulse 85 Pulse Source Pulse Oximeter Pulse Oximetry (%) 97 Oxygen Delivery Method Room Air Intake Visit Reasons: 4 mnts f/u for sleep-Conf Allergies atropine [From ] Allergy (Unknown, Verified 02/20/23 13:53) RASH hyoscyamine [From ] Allergy (Unknown, Verified 02/20/23 13:53) RASH phenobarbital [From ] Allergy (Unknown, Verified 02/20/23 13:53) RASH scopolamine [From ] Allergy (Unknown, Verified 02/20/23 13:53) RASH Allergy (Unknown, Uncoded 12/01/20 13:19) rash HPI HPI Comments History of Present Illness Details 62 y/o female patient presents for follo w up of sleep study. The home sleep study result was significant for snoring, and the AHI was less than 5 and oxygen susana was 88%. She was diagnosed with moderate degree of sleep apnea around 2007-11 and has been using CPAP since then. Pt reports she still has difficulty falling asleep. she is trying to off ambien. Pt tried melatonin 10mg but not really helpful. She did not use magnesium regularly. Pt also reports memory problem, forgetfulness, keep forgetting to turn off the stove. [facility] Medical History Aftercare following right shoulder joint replacement surgery Surgical History Hx of cholecystectomy Hx of tonsillectomy H/O section History of sleeve gastrectomy Hx of bladder repair surgery Hx of LASIK Family History Mother No problems noted. Father No problems noted. Brother No problems noted. Brother No problems noted. Daughter No problems noted. Son No problems noted. Social History Alcohol intake: current Alcohol intake frequency: holidays/special occasions only Patient Tobacco Use Status: Never used Tobacco Review of Systems Const All systems reviewed & are unremarkable except as noted in HPI and below ENT Reports Normal hearing present Neuro Reports Normal hearing present Physical Exam Vital Signs: Last Vital Signs Pulse 85 02/20/23 13:50 BP 130/68 02/20/23 13:50 Pulse Ox 97 02/20/23 13:50 Oxygen Delivery Method Room Air 02/20/23 13:50 BMI result Body Mass Index 38.0 Const General: cooperative Nutritional Appearance: obese Orientation/consciousness: patient oriented x3 Limitations: language barrier (Wolof speaking only) Neck Neck: Yes full ROM and Yes supple Neuro General: patient oriented x3 and gait normal Cranial nerves: Yes Bilaterally intact EOM present, Yes Normal facial strength present, Yes Midline tongue present, Yes Symmetric palate elevation present, Yes Normal hearing present, Yes Ability to bilaterally rotate head present and Yes Ability to bilaterally elevate shoulders present Cognition (Neuro): normal cognition Gait exam (Neuro): Normal gait present Motor exam (neuro): 5/5 motor strength present throughout, Pronator motor function not present and no tremor noted Psych Appearance: grossly normal Mental Status: mental status grossly normal Speech and movement: Normal speech and movement present Affect: normal affect Attitude: cooperative Assessment & Plan Assessment & Plan (1) Daytime sleepiness: Code(s): R40.0 - Somnolence (2) FAYE on CPAP: Code(s): G47.33 - Obstructive sleep apnea (adult) (pediatric) (3) Difficulty sleeping: Code(s): G47.9 - Sleep disorder, unspecified Plan Pt has hx of moderate degree sleep apnea and still uses CPAP. The home sleep study was inconclusive, pt did not sleep well and need in lab sleep study for more detailed evaluation. Will f/u with pt after study to discuss results and appropriate treatment options. Advised patient to reduce ambien use, and continue to use melatonin 10 mg and magnesium 400 mg qHS. Sleep hygiene education provided. Limit caffeine intake in the afternoon and electronic use before bedtime. Pt to call with any worsening concerns or questions. Orders: Orders RT PSG in-lab sleep study Today G47.33 - Obstructive sleep apnea (adult) (pediatric), R40.0 - Somnolence Coding Level of Care Code Est Pt Level 3 (77897) Diagnoses Daytime sleepiness R40.0 FAYE on CPAP G47.33 Difficulty sleeping G47.9
[2023-02-20 13:50] VITALS: BP 130/68; PULSE 85; O2SAT 97; BMI 38.0
== END 2023-02-20 14:21 | disposition home or self-care (01) ==
PROVIDERS: PCP Physician Assistant; Visit Provider Nurse Practitioner Family
DX: R40.0 Somnolence (principal); G47.33 Obstructive sleep apnea (adult) (pediatric); G47.9 Sleep disorder, unspecified
CPT/HCPCS: 99213

== ENCOUNTER → 2023-02-20 13:41 | Outpatient (BNVA) | payer MEDICAID, SELFPAY | PROVIDERS: PCP Physician Assistant; Visit Provider Nurse Practitioner Family | DX: G47.33 Obstructive sleep apnea (adult) (pediatric) (principal); G47.9 Sleep disorder, unspecified; R40.0 Somnolence | CPT/HCPCS: 99212 ==

== ENCOUNTER → 2023-03-11 20:30 | Outpatient (REF) | payer MEDICAID, SELFPAY | LOC: HO.SL 20:30 | PROVIDERS: PCP Physician Assistant; Visit Provider Nurse Practitioner Family | DX: G47.33 Obstructive sleep apnea (adult) (pediatric) (principal); R40.0 Somnolence | CPT/HCPCS: 95810 ==

== ENCOUNTER → 2023-03-11 22:07 | Outpatient (BNV) | payer MEDICAID, SELFPAY | PROVIDERS: PCP Physician Assistant; Visit Provider Psychiatry & Neurology Neurology | DX: G47.33 Obstructive sleep apnea (adult) (pediatric) (principal) | CPT/HCPCS: 95810 ==